=== PATIENT | female | born 1985 | race Caucasian/White ===

== ENCOUNTER 2017-04-29 05:56 | Inpatient (IN) | payer BC ==
[~2017-04-29] VITALS: Ht 172.7 cm; Wt 88.0 kg
--- OUTSIDE RECORDS SUMMARY | ~2017-04-29 | XMS ---
Demographics + + + | Address | [address] | | | [address] | | | [place] [address] | + + + | Preferred Language | Unknown | + + + | Marital Status | Unknown | + + + | Tenriism Affiliation | Unknown | + + + | Race | Unknown | + + + | Ethnic Group | Unknown | + + + Author + + + | Author | [facility] | + + + | Organization | [facility] | + + + | Address | [address] | | | [place] [address] | + + + | Phone | | + + + Care Team Providers + + + + | Care Radiologic Technologist Chief Name | Role | Phone | + + + + Unavailable | Unavailable | + + + + PROBLEMS +---------+ + + +--------+ + + | Type | Condition | ICD9-CM | [id number] | Onset | Condition | SNOMED | | | | Code | Code | Dates | Status | Code | +---------+ + + +--------+ + + | Problem | Encounter | Z34.90 | | | Active | [id number] | | | for | | | | | | | | supervisio | | | | | | | | n of | | | | | | | | normal | | | | | | | | | | | | | | +---------+ + + +--------+ + + ALLERGIES Unknown Allergies SOCIAL HISTORY No smoking Hx information available PLAN OF CARE VITAL SIGNS MEDICATIONS Unknown Medications RESULTS No Results PROCEDURES No Known procedures IMMUNIZATIONS No Known Immunizations"
--- OUTSIDE RECORDS SUMMARY | ~2017-04-29 | XMS ---
Demographics + + + | Address | [address] | | | [address] | | | [place] [address] | + + + | Preferred Language | Unknown | + + + | Marital Status | Unknown | + + + | Pentecostal Affiliation | Unknown | + + + | Race | Unknown | + + + | Ethnic Group | Unknown | + + + Author + + + | Author | [facility] | + + + | Organization | [facility] | + + + | Address | [address] | | | [place] [address] | + + + | Phone | | + + + Care Team Providers + + + + | Care Liquor Establishment Manager Name | Role | Phone | + + + + Unavailable | Unavailable | + + + + PROBLEMS +---------+ + + +--------+ + + | Type | Condition | ICD9-CM | MXP16-DS | Onset | Condition | SNOMED | | | | Code | Code | Dates | Status | Code | +---------+ + + +--------+ + + | Problem | Encounter | Z34.90 | | | Active | [id number] | | | for | | | [...]
== END 2017-04-30 17:10 | disposition home or self-care (01) | DRG 775 ==
LOC: FBC 05:56
PROVIDERS: ADMIT Obstetrics & Gynecology
PROC: 10E0XZZ Delivery of Products of Conception, External Approach (ICD-10-PCS; principal; 2017-04-29)
PROC: 0UQMXZZ Repair Vulva, External Approach (ICD-10-PCS; 2017-04-29)
PROC: 10907ZC Drainage of Amniotic Fluid, Therapeutic from Products of Conception, Via Natural or Artificial Opening (ICD-10-PCS; 2017-04-29)
DX: O69.81X0 Labor and delivery complicated by cord around neck, without compression, not applicable or unspecified (principal); O71.82 Other specified trauma to perineum and vulva; Z3A.39 39 weeks gestation of pregnancy; Z37.0 Single live birth
CPT/HCPCS: 85027; J2590; J7120

== ENCOUNTER 2018-10-31 10:01 | Emergency (ER) | payer BC ==
[~2018-10-31] VITALS: Ht 172.7 cm; Wt 87.5 kg
[~2018-10-31 10:01] MED LIST: NEXIUM40 MG PO
== END 2018-10-31 10:25 | disposition home or self-care (01) ==
LOC: ED 10:01
DX: H69.91 Unspecified Eustachian tube disorder, right ear (principal); Z87.891 Personal history of nicotine dependence; Z79.899 Other long term (current) drug therapy
CPT/HCPCS: 99282

== ENCOUNTER 2019-01-04 19:33 | Emergency (ER) | payer BC ==
[~2019-01-04] VITALS: Ht 172.7 cm; Wt 88.5 kg
[2019-01-04] MEDS ORDERED: TUMS200 MG PO (19:51)
[2019-01-04] MEDS ORDERED: MOTRIN IB200 MG PO (19:51)
== END 2019-01-04 23:40 | disposition home or self-care (01) ==
LOC: ED 19:33
DX: R10.30 Lower abdominal pain, unspecified (principal); K21.9 Gastro-esophageal reflux disease without esophagitis; Z87.891 Personal history of nicotine dependence; Z79.899 Other long term (current) drug therapy
CPT/HCPCS: 74177; 80053; 81001; 83690; 84703; 85025; 85610; 85730; 99284-25; J1885; J2270; J2405; Q9967

== ENCOUNTER 2024-04-22 00:35 | Emergency (ER) | payer BC, OTHER ==
[~2024-04-22] VITALS: Ht 172.7 cm; Wt 93.8 kg
[~2024-04-22 00:35] MED LIST changes: +MOTRIN IB200 MG PO; +ONDANSETRON ODT8 MG PO; +REGLAN10 MG PO; +TUMS200 MG PO
--- OUTSIDE RECORDS SUMMARY | 2024-04-22 00:36 | XMS ---
PreManage Notification: GASTON LOMBARDO [facility] Coordinator Events No recent Security Events currently on file CRITERIA MET - ADOLFOP CARE PROVIDERS -[place]- Dentist: Tile Presser [facility] PHONE: [phone] CELSO IBRAHIM Physician Biology Instructor Current PHONE: Unknown Delicia has no Care Guidelines for this patient. Rob VISIT COUNT (12 MO.) John Gutierres TOTAL 1 NOTE: Visits indicate total known visits. ED/UCC VISIT TRACKING (12 MO.) 04/22/2024 00:36 [place] TYPE: Emergency COMPLAINT: - FLANK PAIN INPATIENT VISIT TRACKING (12 MO.) No inpatient visits to display in this time frame [email or web address]
[2024-04-22] MEDS ORDERED: METOPROLOL TART25 MG PO (00:45)
[2024-04-22 00:58] LABS: BASOPHILS 0.9 % (0-2); EOSINOPHILS 2.6 % (0-6); HEMOGLOBIN 13.1 g/dL (12.0-18.0); LYMPHOCYTES 37.6 % (24-44); MCH 27.6 (27-36); MCHC 33.7 g/dl (30-36); MCV 81.7 fl (81-99); MONOCYTES 9.7 % (0-12); NEUTROPHILS 49.2 % (39-80); PLATELET COUNT 298 K/uL (140-440); RBC 4.77 M/ul (4.3-5.7); RDW 15.1 (10.5-15.0)
[2024-04-22] MEDS ORDERED: SODIUM CHLORIDE 0.9% 1,000 ML IV SCH (01:00)
[2024-04-22] MEDS ORDERED: HYDROmorphone HCL 1 MG/ML SYR IV PRN (01:00)
[2024-04-22] MEDS ORDERED: ondansetron HCL 4 MG/2 ML VIAL IV ONE ×2 (01:00→03:15)
[2024-04-22] MEDS ORDERED: KETOROLAC TROMETHAMINE 30 MG/ML VIAL IV ONE (01:00)
[2024-04-22 01:09] LABS: BILIRUBIN, URINE NEGATIVE (negative); BLOOD/HGB, URINE NEGATIVE (Negative); KETONE, URINE TRACE (Negative); LEUK ESTERASE, URINE MODERATE (negative); NITRITE, URINE NEGATIVE (negative)
[2024-04-22 01:13] LABS: ALBUMIN 3.6 g/dL (3.4-5.0); ANION GAP 18.4 (7-21); BILIRUBIN, TOTAL 0.2 ng/dL (0.2-1.0); BUN/CREATININE RATIO 14.94 (6.0-28.6); CALCIUM 9.2 mg/dL (8.5-10.1); CREATININE, SERUM 0.87 mg/dL (0.55-1.02); POTASSIUM 3.4 mmol/L (3.5-5.1); PROTEIN, TOTAL 7.2 g/dL (6.4-8.2)
[2024-04-22 01:17] LABS: EPITHELIAL CELLS, URINE SQUAMOUS 4+ /lpf (0-1+)
[2024-04-22 01:18] LABS: RED BLOOD CELLS, URINE 0-1 /hpf (0-5)
[2024-04-22 01:19] LABS: BACTERIA, URINE 4+ /hpf (negative); CASTS, URINE NONE SEEN \\lpf; COLLECTION TYPE, URINE CLEAN CATCH; CRYSTALS, URINE NONE SEEN (0-1+); REFLEX CULTURE, URINE No (No)
[2024-04-22] MEDS ORDERED: CEFTRIAXONE/SODIUM CHLORIDE 2 GM/100 ML PIGGYBACK IV ONE (03:15)
[2024-04-22 03:40] LABS: BILIRUBIN, URINE POSITIVE (negative); BLOOD/HGB, URINE LARGE (Negative); KETONE, URINE TRACE (Negative); LEUK ESTERASE, URINE NEGATIVE (negative); NITRITE, URINE NEGATIVE (negative); PH, URINE 5.5 (5-7)
[2024-04-22 03:45] LABS: EPITHELIAL CELLS, URINE SQUAMOUS 2+ /lpf (0-1+); RED BLOOD CELLS, URINE >50 /hpf (0-5)
[2024-04-22 03:46] LABS: BACTERIA, URINE 1+ /hpf (negative); CASTS, URINE NONE SEEN \\lpf; CRYSTALS, URINE NONE SEEN (0-1+); WHITE BLOOD CELLS, URINE 0-1 /HPF (0-5)
[2024-04-22 03:47] LABS: COLLECTION TYPE, URINE CATH; REFLEX CULTURE, URINE No (No)
[2024-04-22] MEDS ORDERED: ONDANSETRON ODT8 MG PO (03:57)
[2024-04-22] MEDS ORDERED: FLOMAX0.4 MG PO (03:57)
[2024-04-22] MEDS ORDERED: PERCOCET 5-3251 EACH PO (03:57)
[2024-04-22] MEDS ORDERED: OXYCODONE/ACETAMINOPHEN 1 TAB HOME.PACK PO ONE (04:00)
[2024-04-22] MEDS ORDERED: TAMSULOSIN HCL 0.4 MG CAP PO ONE (04:00)
[2024-04-22] MEDS ORDERED: ONDANSETRON 4 MG HOME.PACK SL ONE (04:00)
[2024-04-22 04:05] VITALS: BP 134/87
== END 2024-04-22 04:05 | disposition home or self-care (01) ==
LOC: ED 00:35
PROVIDERS: Emergency Medicine
DX: N13.2 Hydronephrosis with renal and ureteral calculous obstruction (principal); K21.9 Gastro-esophageal reflux disease without esophagitis; Z87.891 Personal history of nicotine dependence; Z79.899 Other long term (current) drug therapy
CPT/HCPCS: 36415; 51701; 74176; 80053; 81001; 84703; 85025; 99284-25; A9270; J1170; J1885; J2405; J7030